=== PATIENT | female | born 1945 | race Two or more races ===

== ENCOUNTER 2019-09-30 02:54 | Emergency (ER) | payer MEDICARE, OTHER ==
[~2019-09-30] VITALS: Ht 144.8 cm; Wt 54.4 kg
[2019-09-30 02:59] VITALS: BP 168/75
[2019-09-30] MEDS ORDERED: QUINAPRIL HCL5 MG PO (03:02)
[2019-09-30] MEDS ORDERED: OMEPRAZOLE20 M2 ORAL (03:02)
[2019-09-30 03:10] VITALS: BP 168/75
[2019-09-30 03:23] VITALS: BP 144/56
--- NOTE | 2019-09-30 03:27 | Emergency Room Report ---
History of Present Illness General Chief Complaint: Hypertension Source: Patient Present Illness HPI Disclaimer: Please note that this report is being documented using [employer] technology. This can lead to erroneous entry secondary to incorrect interpretation by the dictating instrument. HPI: 74-year-old primary [place]ian-speaking female with a history of hypertension and GERD presents for evaluation of elevated blood pressure readings at home. Patient states she took her blood pressure early this morning approximately 180 mmHg systolic. She reported slight discomfort in the chest but cannot specifically specify as to the nature of it. She denies any difficulty breathing, fever, chills, cough, URI symptoms, nausea, vomiting, diarrhea, headache, visual changes, back pain or other changes in her health. She has been compliant with her quinapril PMH: Hypertension, GERD PSH: Reviewed Allergies: Reviewed Social Hx: Reviewed Allergies: Coded Allergies: No Known Allergies (Unverified , 09/30/19) COVID-19 Screening Contact w/high risk pt: No Experienced COVID-19 symptoms?: No COVID-19 Testing performed MATERIALS INSPECTOR: No Patient History Last Menstrual Period: n/a Nursing Documentation-PM Past Medical History: No History, Except For Hx Hypertension: Yes Review of Systems All Other Systems: negative except mentioned in HPI Physical Exam Vital Signs Date Time Temp Pulse Resp B/P (MAP) Pulse Ox O2 Delivery O2 Flow Rate FiO2 09/30/19 02:48 98.2 92 18 180/90 (120) 98 Room Air General: Awake and alert, no acute distress, hypertensive HEENT: NC/AT. EOMI. Cardiovascular: RRR. S1 and S2 normal. No murmur appreciated Resp: Normal work of breathing. No cough, wheezing or crackles appreciated Abdomen: Abdomen is soft, nondistended. Nontender Skin: Intact. No abrasions, laceration or rash over the exposed skin MSK: Normal tone and bulk. Moving all extremities. No obvious deformity. Neuro: Awake and alert. Mentating appropriately. Medical Decision Making Diagnostic Impression: Primary Impression: Hypertension Additional Impression: Hyponatremia ER Course 74-year-old female presents for evaluation of elevated blood pressure readings at home and chest discomfort beginning early this morning. She arrives hypertensive but otherwise no acute distress, stable condition. She is pleasant and has no complaints at this time. Concern for hypertensive urgency, hypertensive emergency, ACS, palpitations, arrhythmia, electrolyte abnormality, renal dysfunction to name a few though other etiologies also considered. EKG showed sinus rhythm without evidence of ischemia. Chest x-ray unremarkable. Troponin negative and labs largely within normal's aside from hyponatremia at 125. I discussed this with the patient and she states that she has not been eating much over the past 2 days since running out of her anxiety medicine. She states she felt jittery and lost her appetite. She has been drinking a lot of water as a result. Hyponatremia likely related to polydipsia however given the patient's age and comorbidities have plan for admission. When I discussed this with the patient she stated she did not want to be admitted to the hospital and wished to return home to follow-up with her PMD. Her blood pressure had resolved as did her chest discomfort. She stated that as long as her EKG and blood work for heart and hypertension were normal she wanted to return home. Discussed with her that low sodium can lead to multiple medical problems including seizures, altered mental status, increased comorbidities and even cause however she declined admission at this time. Patient signed AMA paperwork. I advised her to follow-up with her PMD and return should she change her mind. Patient left the emergency department AGAINST MEDICAL ADVICE. Laboratory Tests Test 09/30/19 03:23 White Blood Count 6.1 K/UL (4.8-10.8) Red Blood Count 4.70 M/UL (4.20-5.40) Hemoglobin 14.8 G/DL (12.0-16.0) Hematocrit 43.6 % (37.0-47.0) Mean Corpuscular Volume 93 FL (80-99) Mean Corpuscular Hemoglobin 31.5 PG (27.0-31.0) H Mean Corpuscular Hemoglobin Concent 34.0 G/DL (32.0-36.0) Red Cell Distribution Width 11.8 % (11.6-14.8) Platelet Count 208 K/UL (150-450) Mean Platelet Volume 8.5 FL (6.5-10.1) Neutrophils (%) (Auto) 71.4 % (45.0-75.0) Lymphocytes (%) (Auto) 21.6 % (20.0-45.0) Monocytes (%) (Auto) 5.8 % (1.0-10.0) Eosinophils (%) (Auto) 0.0 % (0.0-3.0) Basophils (%) (Auto) 1.1 % (0.0-2.0) Sodium Level 126 MMOL/L (136-145) L Potassium Level 3.3 MMOL/L (3.5-5.1) L Chloride Level 92 MMOL/L (98-107) L Carbon Dioxide Level 24 MMOL/L (21-32) Anion Gap 10 mmol/L (5-15) Blood Urea Nitrogen 8 mg/dL (7-18) Creatinine 0.9 MG/DL (0.55-1.30) Estimated Glomerular Filtration Rate > 60 mL/min (>60) Glucose Level 160 MG/DL (74-106) H Calcium Level 8.7 MG/DL (8.5-10.1) Total Bilirubin 0.5 MG/DL (0.2-1.0) Aspartate Amino Transferase (AST) 37 U/L (15-37) Alanine Aminotransferase (ALT) 44 U/L (12-78) Alkaline Phosphatase 102 U/L (46-116) Troponin I 0.007 ng/mL (0.000-0.056) Total Protein 7.9 G/DL (6.4-8.2) Albumin 4.1 G/DL (3.4-5.0) Globulin 3.8 g/dL Albumin/Globulin Ratio 1.1 (1.0-2.7) EKG Diagnostic Results EKG Time: 03:11 Rate: normal Rhythm: NSR ST Segments: no acute changes Other Impression Sinus rhythm, normal axis, normal intervals, no ST segment changes. Rhythm Strip Diag. Results Rhythm Strip Time: 03:11 EP Interpretation: yes Rate: 80s Rhythm: NSR, no PVC's, no ectopy Chest X-Ray Diagnostic Results Chest X-Ray Diagnostic Results : Chest X-Ray Ordered: Yes # of Views/Limited/Complete: 1 View Indication: Other - Hypertension EP Interpretation: Yes Interpretation: no consolidation, no effusion, no pneumothorax, no acute cardiopulmonary disease Impression: No acute disease Electronically Signed by: Electronically signed by Dr. Bradley Norris Last Vital Signs Date Time Temp Pulse Resp B/P (MAP) Pulse Ox O2 Delivery O2 Flow Rate FiO2 09/30/19 03:23 92 15 144/56 96 Room Air 09/30/19 02:59 98.2 Disposition: AGAINST MEDICAL ADVICE Condition: Stable Bradley Norris MD Sep 30, 2019 03:27
[2019-09-30 03:40] LABS: BASOPHILS % (AUTO) 1.1 % (0.0-2.0); HEMATOCRIT 43.6 % (37.0-47.0); HEMOGLOBIN 14.8 G/DL (12.0-16.0); LYMPHOCYTES % (AUTO) 21.6 % (20.0-45.0); MEAN CORPUSCULAR VOLUME 93 FL (80-99); MONOCYTES % (AUTO) 5.8 % (1.0-10.0); NEUTROPHILS % (AUTO) 71.4 % (45.0-75.0); PLATELET COUNT 208 K/UL (150-450); RED CELL DISTRIBUTION WIDTH 11.8 % (11.6-14.8); WHITE BLOOD COUNT 6.1 K/UL (4.8-10.8)
[2019-09-30 03:53] LABS: ANION GAP 10 mmol/L (5-15); BLOOD UREA NITROGEN 8 mg/dL (7-18); CALCIUM 8.7 MG/DL (8.5-10.1); CARBON DIOXIDE 24 MMOL/L (21-32); CHLORIDE 92 MMOL/L (98-107); CREATININE 0.9 MG/DL (0.55-1.30); POTASSIUM 3.3 MMOL/L (3.5-5.1); SODIUM 126 MMOL/L (136-145)
[2019-09-30 03:56] LABS: ALANINE AMINOTRANSFERASE 44 U/L (12-78); ALBUMIN 4.1 G/DL (3.4-5.0); ALBUMIN/GLOBULIN RATIO 1.1 (1.0-2.7); ALKALINE PHOSPHATASE 102 U/L (46-116); ASPARTATE AMINO TRANSFERASE 37 U/L (15-37); BILIRUBIN,TOTAL 0.5 MG/DL (0.2-1.0)
[2019-09-30] MEDS ORDERED: ALPRAZolam 0.25mg tab ORAL ONE (04:30)
--- NOTE | 2019-09-30 10:28 | Diagnostic Imaging Report ---
Procedure: XRAY Chest 1v Reason for study: Chest pain Comparison films: None. FINDINGS: A single one view chest is obtained. Vascularity is normal. There is slight interstitial prominence but no acute alveolar process. Cardiac and mediastinal silhouette are within normal limits. CP angles are sharp. The bony thorax appear unremarkable. IMPRESSION: NO ACUTE CARDIOPULMONARY DISEASE.
== END 2019-09-30 05:10 | disposition left against medical advice (07) ==
LOC: EDBD 02:54 → EMR 03:26
DX: I10 Essential (primary) hypertension (principal); E87.1 Hypo-osmolality and hyponatremia; K21.9 Gastro-esophageal reflux disease without esophagitis; Z79.899 Other long term (current) drug therapy
CPT/HCPCS: 36415; 71045; 80053; 84484; 85025; 93005; 96361; 96374; 99284; J0360; J7030